=== PATIENT | female | born 1995 | race African-American/Black ===

== ENCOUNTER 2023-05-04 20:28 | Emergency (ER) | payer MEDICAID ==
[~2023-05-04] VITALS: Ht 162.6 cm; Wt 63.6 kg
[2023-05-04 21:57] LABS: BASOPHILS % (AUTO) 0.3 % (0-1); EOSINOPHILS # (AUTO) 0.5 X10'3 (0-0.9); HEMATOCRIT 42.3 % (35.0-45.0); HEMOGLOBIN 13.9 g/dl (12.0-16.0); LYMPHOCYTES # (AUTO) 1.4 X10'3 (1.1-4.8); LYMPHOCYTES % (AUTO) 13.6 % (21-51); MEAN CORPUSCULAR HEMOGLOBIN 29.3 PG (27.0-31.0); MEAN CORPUSCULAR HGB CONC 32.9 g/dL (33.0-36.5); MEAN CORPUSCULAR VOLUME 89.1 FL (78-98); MEAN PLATELET VOLUME 8.3 FL (7.4-10.4); MONOCYTES # (AUTO) 0.7 X10'3 (0-0.9); MONOCYTES % (AUTO) 6.6 % (2-12); NEUTROPHILS # (AUTO) 7.6 X10'3 (1.8-7.7); NEUTROPHILS % (AUTO) 74.5 % (42-75); PLATELET COUNT 307 X10'3 (140-440); RED BLOOD COUNT 4.75 X10'6 (4.20-5.60); RED CELL DISTRIBUTION WIDTH 13.3 % (11.5-14.5); WHITE BLOOD COUNT 10.2 X10'3 (4.5-11.0)
[2023-05-04 21:58] LABS: ALANINE AMINOTRANSFERASE 22 U/L (12-78); ALBUMIN 3.9 G/DL (3.4-5.0); ALBUMIN/GLOBULIN RATIO 1.1 (1.1-1.5); ALKALINE PHOSPHATASE 55 IU/L (46-116); ANION GAP 8 (8-16); ASPARTATE AMINO TRANSFERASE 15 U/L (10-37); BILIRUBIN,TOTAL 0.4 MG/DL (0.1-1.0); BLOOD UREA NITROGEN 12 MG/DL (7-18); BUN/CREATININE RATIO 11.9 (10.0-20.0); CHLORIDE 102 MMOL/L (99-107); CREATININE 1.01 MG/DL (0.40-0.90); GLUCOSE 110 MG/DL (70-104); POTASSIUM 3.3 MMOL/L (3.5-5.1); SODIUM 137 MMOL/L (135-145); TOTAL CARBON DIOXIDE 27.2 MMOL/L (24-32); TOTAL PROTEIN 7.5 G/DL (6.4-8.2); eGFR 65 ML/MIN
[2023-05-04 22:06] LABS: PRO BRAIN NATRIURETIC PEPTIDE 173 PG/ML (0-125)
[2023-05-04 22:17] LABS: CALCIUM 8.6 MG/DL (8.5-10.1)
[2023-05-04] MEDS ORDERED: dexamethasone sod phosphate 10mg/ml inj IV STA (22:34)
[2023-05-04] MEDS ORDERED: potassium Cl 20 mEq SR tablet PO STA (23:13)
[2023-05-04 23:41] LABS: D-DIMER < 0.19 MG/L FEU (0-0.50)
[2023-05-04] MEDS ORDERED: ALBU8HFA PO (23:48)
[2023-05-04] MEDS ORDERED: PRED50TA PO (23:48)
[2023-05-04 23:52] LABS: HCG SERUM QL NEGATIVE
[2023-05-05 00:09] VITALS: BP 118/81; PULSE 85; RESP 16; TEMP 98; O2SAT 95
== END 2023-05-05 00:11 | disposition home or self-care (01) ==
LOC: ER 20:29
DX: J45.909 Unspecified asthma, uncomplicated (principal)
CPT/HCPCS: 36415; 71045; 80053; 83605; 83880; 84484; 84703; 85025; 85379; 87040; 93005; 96374; 99285; J1100; J7050

== ENCOUNTER 2025-04-05 13:34 | Inpatient (IN) | payer MEDICAID ==
[~2025-04-05] VITALS: Ht 162.6 cm; Wt 60.6 kg
[~2025-04-05 13:34] MED LIST: PRED50TA PO
[2025-04-05] MEDS: ipratropium/albuterol 3ml nebule NEB ONE (13:50)
[2025-04-05 13:51] VITALS: PULSE 107; RESP 20; O2SAT 94
[2025-04-05 13:58] VITALS: PULSE 115; RESP 20; O2SAT 98
[2025-04-05] MEDS: albuterol 2.5 MG/3 ML nebule CONTNEB STA (14:03)
--- NOTE | 2025-04-05 14:03 | Physician Documentation ---
History of Present Illness ~ Chief Complaint: Asthma Stated Complaint: SOB Time Seen by MD: 13:45 OK to notify your PCP?: Yes Source: patient Mode of Arrival: POV Exam Limitations: clinical condition (SHORTNESS OF BREATH) HPI 29-year-old female who states she regularly vapes nicotine with chief complaint shortness of breath which she states started a few days ago along with dry cough. She attributes her shortness of breath to her asthma. Patient reports she was diagnosed with asthma as an adult after she started vaping. She reports she ran out of her home inhaler and that she then tried her nebulizer but states it was not working. She decided to come to the ER today because her symptoms continued to get progressively worse. +cough, dry. She denies fever, chills, malaise, chest pain, nausea, edema, sore throat, sinus pain. Medication Reconciliation Allergies: Coded Allergies: No Known Allergies (Unverified , 05/04/23) Scheduled Prednisone (Prednisone), 1 TAB PO DAILY Past Medical History Past Medical History: Asthma Past Surgical History: noncontributory Review of Systems All Other Systems at this time: Reviewed and Negative Physical Exam Vital Signs: Temperature: 98.5, Source: Oral, Heart Rate: 115, Respiratory Rate: 20, BP: 124/87, Pulse Oximetry: 98, Weight: 60.600 Oxygen Flow Rate: 0 Physical Exam General Appearance: Alert, WD/WN. Mild respiratory distress. HEENT: NCAT, PERRL, EOMI. Bulbar conjunctiva clear, no rhinorrhea, posterior pharyngeal wall normal. Neck: Supple, trachea midline. No cervical lymphadenopathy Cardiovascular: Elevated rate, regular rhythm, No m/r/g. Lungs: Expiratory wheezing throughout all posterior lung meyer, no rhonchi, no coughing observed. Extremities: Normal inspection. No edema. Skin: Warm/dry, normal color Neurological: Alert and oriented x4, normal gait. Psychiatric: Affect congruent with mood. Procedures Procedures Recheck: After 1st breathing treatment patient is breath sounds improved there was decreased wheezing however patient was still very tight and still had wheezing throughout all lung meyer thus I ordered a continuous nebulizer treatment as well as Solu-Medrol. 2nd recheck at 15:37: Still wheezing throughout all lung meyer. 3rd recheck at 1700: Still wheezing throughout all lung meyer, o2 sat with exertion on room air 89%. Patient reports that she feels 75% better than upon arrival; however, discussed plan for admission which she is agreeable to. Progress Results/Orders Results/Orders Orders - RAMIRO GALLEGOS Svn Treatment (04/05/25 13:43) * Rt Notification Q1H (04/05/25 13:59) Chest,Two Views (04/05/25 15:35) Cbc/Diff (04/05/25 15:35) BMP (04/05/25 15:35) Completed Orders - RAMIRO GALLEGOS Ipratropium/Albuterol Nebule (Ipratrop/A (04/05/25 13:45) Methylprednisolone Sod Succ (Solumedrol (04/05/25 14:00) Albuterol 2.5mg/3ml Nebule (Proventil 2. (04/05/25 13:59) Chest,Two Views (04/05/25 15:35) Medications Received in ER Medications (Trade) Dose Ordered Sig/Miguel Route PRN Reason Start Time Stop Time Status Last Admin Dose Admin (ipratrop/ albuterol 0.5-3(2.5) MG/3ml nebule) 3 ml ONCE ONCE NEB 04/05/25 13:45 04/05/25 13:46 DC 04/05/25 13:50 3 ML (SoluMEDROL 125mg inj) 125 mg ONCE ONCE IV 04/05/25 14:00 04/05/25 14:01 DC 04/05/25 14:09 125 MG (Proventil 2.5 MG/3ML nebule) 10 mg ONCE STAT CONTNEB 04/05/25 13:59 04/05/25 14:02 DC 04/05/25 14:03 10 MG Vital Signs 04/05/25 04/05/25 04/05/25 04/05/25 13:38 13:51 13:58 14:04 Temp 98.5 Pulse 99 107 115 109 Resp 16 20 20 20 B/P (MAP) 124/87 Pulse Ox 95 94 98 96 O2 Delivery Room Air* Room Air* O2 Flow Rate 0 0 0 FiO2 21 21 04/05/25 04/05/25 04/05/25 04/05/25 14:04 14:15 14:56 15:13 Pulse 120 112 Resp 20 20 18 B/P (MAP) 144/82 (102) Pulse Ox 96 98 O2 Flow Rate 8.0 6.0 04/05/25 15:22 Pulse 100 Resp 20 B/P (MAP) 139/93 (108) Pulse Ox 95 O2 Flow Rate 0 Laboratory Tests Test 04/05/25 16:11 CBC Comment Chemistry Comments EKG/XRAY/CT/US/VASC/MRI Chest X-Ray : Interpreted By: radiologist Views: 2 VIEW Indication: cough, shortness of breath Lungs: normal Mediastinum: normal Ribs/Bones: normal Abdomen: normal Impression: no acute disease Medical Decision Making Additional information obtaine: N/A Findings n/a Heart Score: 0 Differential Dx:Considerations: Include: anxiety, asthma, bronchitis, cardiogenic shock, CHF, COPD, dysrhythmia, hypertension, accelerated, hypertension, essential, hypertension, malignant, hyperventilation, hyponatremia, myocardial infarction, panic attack, pneumonia, pneumonitis, pneumothorax, PSVT, pulmonary embolism, respiratory distress, respiratory failure, sinusitis, upper resp. infection Departure Time of Disposition: 16:46 Admitted to Inpatient Unit: to hospitalist Impression: Primary Impression: Acute asthma Additional Impression: Vapes nicotine containing substance Condition: Fair Discharge Instructions: Bronchospasm, Adult, [id number] Referrals: NO PRIMARY CARE PROVIDER (PCP) Education Educated: Patient Educated regarding: diagnosis, treatment, need for follow up Signature Scribe Signature: x Attestation: RAMIRO Ko Apr 05, 2025 14:03
[2025-04-05 14:04] VITALS: PULSE 109; RESP 20; O2SAT 96
[2025-04-05 15:13] VITALS: PULSE 112; RESP 18; O2SAT 98
--- NOTE | 2025-04-05 15:54 | RADIOLOGY REPORT ---
CHEST TWO VIEWS REASON FOR EXAM: Shortness of breath COMPARISON: DI CHEST,SINGLE VIEW on DOS: 05/04/23 TECHNIQUE: PA and lateral views of the chest are obtained. FINDINGS: The cardiomediastinal silhouette is within normal limits for size. There is no focal airspace disease. There is no pleural effusion. No acute osseous abnormality is identified. IMPRESSION: No radiographic evidence of acute cardiopulmonary process.
[2025-04-05 16:37] LABS: MEAN PLATELET VOLUME 8.9 FL (7.4-10.4); RED CELL DISTRIBUTION WIDTH 14.0 % (11.5-14.5)
[2025-04-05 16:46] LABS: CREATININE 0.92 MG/DL (0.40-0.90); TOTAL CARBON DIOXIDE 24.2 MMOL/L (24-32); eCRCL 77 ML/MIN; eGFR 87 ML/MIN
[2025-04-05] MEDS ORDERED: HYDROcodone/acetaminophen 5mg/325mg tablet PO PRN (17:05)
[2025-04-05] MEDS ORDERED: potassium Cl 40MEQ/1/2NS 520ml 520 ML IV PRN (17:05)
[2025-04-05] MEDS ORDERED: magnesium hydroxide 30ml (MOM) UD suspension PO PRN (17:05)
[2025-04-05] MEDS ORDERED: mag hydrox/Alum hydrox/simeth 30ml oral suspension PO PRN (17:05)
[2025-04-05] MEDS ORDERED: albuterol 2.5 MG/3 ML nebule NEB PRN (17:05)
[2025-04-05] MEDS ORDERED: magnesium sulf-water 2g/50mL 50 ML IV PRN (17:05)
[2025-04-05] MEDS ORDERED: magnesium sulf-water 4G/100mL 100 ML IV PRN (17:05)
[2025-04-05] MEDS ORDERED: potassium Cl 20 mEq SR tablet PO PRN (17:05)
[2025-04-05] MEDS ORDERED: ondansetron/PF 4mg/2ml inj IV PRN (17:05)
[2025-04-05] MEDS ORDERED: HYDROcodone/acetaminophen 10/325mg tab PO PRN (17:05)
--- NOTE | 2025-04-05 17:45 | HISTORY AND PHYSICAL ---
History & Physical Providers to CC ~ History of Present Illness Reason for Admit\Complaint: COPD exacerbation\ acute respiratory failure History of Present Illness This is a 29 year old female who presents to ED with two day history of shortness of breath with cough and significant wheezing. The patient denies any fever. The patient has used an inhaler in the past however she is currently out of the inhaler. The patient previously smoked cigarettes in his currently vaping nicotine and goes through a nicotine vape every three weeks. The patient has been vaping nicotine for six years. On arrival to the ED the patient was significantly short of breath and initially required 6 L of oxygen however now she is on room air and is able to talk in full sentences well catching her breath however on exam the patient has inspiratory wheezes throughout all listening meyer. Allergies: Coded Allergies: No Known Allergies (Unverified , 05/04/23) Home Medications Home Medications Active Prednisone 50 Mg Tablet 1 Tab PO DAILY 5 Days Past Medical History Past Medical History Asthma (started after starting to vape nicotine- that is likely early COPD Past Surgical History Surgical History Comment No prior surgeries Family History Family History: First degree relatives alive and well FATHER MOTHER Past Social History Social History Comment Vapes nicotine, does not drink alcohol or use illicit drugs. Full code status ROS ROS Except for positives in the HPI the rest of the 14 point review systems is negative Exam Vitals: Vital Signs Date Time Temp Pulse Resp B/P (MAP) Pulse Ox O2 Delivery O2 Flow Rate FiO2 04/05/25 17:00 115 18 125/93 (104) 96 0 04/05/25 13:58 Room Air* 21 04/05/25 13:38 98.5 General: Gen. No acute distress alert and oriented 4 Lungs inspiratory wheezes throughout all listening meyer Heart normal sinus rhythm no murmurs rubs or clicks noted Abdomen soft nontender bowel sounds are normoactive Lower extremities no clubbing cyanosis, nor edema appreciated bilaterally Diagnostic Data Last Recorded Lab Results: 04/05/25 1611 04/05/25 1611 Counseling Services Smoking & Tobacco Cessation: 3-10 Minutes Advance Care Planning Advanced Care plannin - 30 Minutes Problems: (1) Asthma exacerbation Status: Acute Additional Plan # asthma exacerbation- more likely early COPD # asthma symptoms started after starting to vape nicotine # acute respiratory failure secondary to has been assessed IV Solu-Medrol PRN albuterol nebs Scheduled DuoNeb Scheduled b.i.d. budesonide neb Incentive spirometer # hypokalemia On potassium replacement protocol # mild kidney disease CKD versus SANTO Daily metabolic panels are ordered # Tobacco use disorder-I spent 7 minutes discussing vaping cessation with the patient including the risk of continuing vape nicotine: Lung cancer, stroke, heart attack- the risk of chronic lung disease and the risk of glucocorticoid steroids. The patient declined a nicotine patch. # DVT prophylaxis Ambulate I spent a total of 16 minutes on reviewing various resuscitative measures/ ACP with the patient at the time of admission. The patient has decided on full code Date of Service: Apr 05, 2025 Billing Provider: JEAN-CLAUDE WALLER DO Common Visit Codes: [id number] INP/OBS CARE (HIGH) Secondary Visit Codes: [id number] CHNG SMOKING 3-10M, [id number] CARE PLAN 30 MINUTES JEAN-CLAUDE WALLER DO Apr 05, 2025 17:45
[2025-04-05] MEDS: docusate sod 100mg capsule PO SCH (20:00)
[2025-04-05] MEDS: K and/or MAG REPLACEMENT MC SCH (20:00)
[2025-04-05] MEDS: ipratropium/albuterol 3ml nebule NEB SCH (20:16)
[2025-04-05] MEDS: budesonide 0.5mg/2ml UD nebule IH SCH (20:16)
[2025-04-05 20:20] VITALS: PULSE 99; RESP 18; O2SAT 95
[2025-04-05 20:25] VITALS: PULSE 114; RESP 16
[2025-04-05] MEDS: DOXYCYCLINE 100MG CAPSULE PO SCH (21:32)
[2025-04-05] MEDS: methylPREDNISolone sod succ/PF 40mg inj. IV SCH (21:33)
[2025-04-05] MEDS: potassium Cl 20 mEq SR tablet PO PRN (22:06)
[2025-04-06] VITALS (8 sets, daily range): BP systolic 120–126; BP diastolic 64–71; PULSE 79–88; RESP 14–18; TEMP 97.7–98.1; O2SAT 88–98
[2025-04-06 03:11] LABS: MEAN PLATELET VOLUME 8.0 FL (7.4-10.4); RED CELL DISTRIBUTION WIDTH 13.9 % (11.5-14.5)
[2025-04-06 03:23] LABS: CREATININE 0.80 MG/DL (0.40-0.90); TOTAL CARBON DIOXIDE 25.6 MMOL/L (24-32); eCRCL 89 ML/MIN; eGFR > 90 ML/MIN
[2025-04-06] MEDS ORDERED: NO HOME MEDS (15:19)
[2025-04-06] MEDS ORDERED: DOXY-224 PO (18:30)
[2025-04-06] MEDS ORDERED: PRED20TA PO (18:30)
[2025-04-06] MEDS ORDERED: IPRA4AER IH (18:30)
[2025-04-06] MEDS ORDERED: MOME13HF11 INH (18:30)
--- NOTE | 2025-04-06 18:37 | DISCHARGE SUMMARY ---
Discharge Summary Providers to CC ~ Discharge Summary Admission Diagnosis: Acute respiratory failure secondary to COPD exacerbation Hospital Course DATE OF ADMISSION: 04/05/2025 DATE OF DISCHARGE: 04/06/2025 Discharge Diagnosis\Comment: Acute respiratory failure COPD exacerbation Hypokalemia Acute kidney injury was ruled out Operations\Procedures: None Consultants: None Complications: None Condition on DC: Stable New Medications: Ipratropium/Albuterol Sulfate (Combivent Respimat Inhal Erbacon) 20 Mcg-100 Mcg/Actuation Aer.w.adap 2 PUFFS IH Q6H PRN for SOB or wheezing, #1 INH 2 Refills Mometasone/Formoterol (Dulera 200 Mcg/5 Mcg Inhaler) 200 Mcg-5 Mcg/Actuation Hfa.aer.ad 2 PUFFS INH Q12H for 30 Days, #13 GM 2 Refills Prednisone* (Prednisone*) 20 Mg Tablet 2 TAB PO DAILY, #10 TAB Take two tablets daily for three days and then one tablet daily for four days Doxycycline Hyclate (Doxycycline Hyclate) 100 Mg Capsule 100 MG PO BID, #6 CAP Discontinued Medications: Home Med List (No Home Medications) Each Discharge Summary: I admitted Ms. Garcia with the following HPI:This is a 29 year old female who presents to ED with two day history of shortness of breath with cough and significant wheezing. The patient denies any fever. The patient has used an inhaler in the past however she is currently out of the inhaler. The patient previously smoked cigarettes in his currently vaping nicotine and goes through a nicotine vape every three weeks. The patient has been vaping nicotine for six years. On arrival to the ED the patient was significantly short of breath and initially required 6 L of oxygen however now she is on room air and is able to talk in full sentences well catching her breath however on exam the patient has inspiratory wheezes throughout all listening meyer. The patient continued to have inspiratory wheezes in the morning of the however the patient continue improve throughout the day and nursing staff ambulate the patient at 6:00 p.m. and the patient is oxygen saturation remained above 91% while ambulating the patient had no signs of dyspnea with ambulation and the patient felt significantly improved and wanted to be discharged home. The patient was discharged with Combivent Respimat inhaler as well as the scheduled Dulera inhaler and a tapering dose of prednisone and doxycycline. The patient's serum potassium normalized on the day discharge was 4.1. Gen. No acute distress alert and oriented 4 Lungs mild inspiratory wheezes in all listening meyer Heart normal sinus rhythm no murmurs rubs or clicks noted Abdomen soft nontender bowel sounds are normoactive Lower extremities no clubbing cyanosis, nor edema appreciated bilaterally The patient felt ready to be discharged and was medically cleared to be discharged on 04/06/2025 The patient was seen and evaluated on day of discharge. Time spent on discharge 40 minutes The patient recovered sooner than to be expected with acute respiratory failure with an acute exacerbation of COPD *Problems/Diagnosis: (1) Asthma exacerbation Status: Acute Total Time Spent on D/C: > 30 Minutes Date of Service: Apr 06, 2025 Billing Provider: JEAN-CLAUDE WALLER DO Common Visit Codes: [id number]/OBS DISCH DAY >30min JEAN-CLAUDE WALLER DO Apr 06, 2025 18:37
== END 2025-04-06 19:00 | disposition home or self-care (01) | DRG 140 ==
LOC: ER 13:34 → ED HOLD 17:09 → SUR 3N 04-06 07:06
PROVIDERS: ADMIT Family Medicine; ATTEND Family Medicine
DX: J44.1 Chronic obstructive pulmonary disease with (acute) exacerbation (principal); J96.00 Acute respiratory failure, unspecified whether with hypoxia or hypercapnia; J45.901 Unspecified asthma with (acute) exacerbation; F17.290 Nicotine dependence, other tobacco product, uncomplicated; E87.6 Hypokalemia
CPT/HCPCS: 36415; 71046; 80048; 80053; 83735; 85025; 87081; 94640; 94760; 96374; 99285; A7015; G0378; J2919